=== PATIENT | male | born 1980 | race Caucasian/White ===

== ENCOUNTER 2022-12-20 10:28 | Emergency (ER) | payer OTHER ==
[2022-12-20 10:46] VITALS: RESP 16
[2022-12-20] MEDS ORDERED: SODIUM CHLORIDE 0.9% 1,000 ML IV STA (11:12)
[2022-12-20] MEDS ORDERED: ACETAMINOPHEN TAB 500 MG TAB PO STA (11:12)
--- NOTE | 2022-12-20 11:17 | ED ---
Back Pain HPI - General Chief Complaint: Back Pain/Injury Stated Complaint: lower back pain spiine area Time Seen by Provider: 12/20/22 10:33 Source: patient Limitations: no limitations - History of Present Illness Initial Comments: 42-year-old male with a past surgical history significant for discectomy/laminectomy L4-L5 by Dr. Mcneill on 10/26/22. Patient reports after surgery, has been recovering well with minimal pain however today at rest onset of new lower back pain. No trauma or injury. Pain is sharp in nature. It is a 2 out of 10 in severity constantly however if he is moving pain increases to an 8 out of 10 in severity. He took 800 mg of ibuprofen this morning which he states has provided no relief. Denies chills. Denies fever. No saddle anesthesia. No incontinence. No urinary symptoms. No other complaints. - Related Data Previous Rx's Medication Instructions Recorded methylPREDNISolone Dose Pack 4 mg PO DIRECTED #1 packet 12/20/22 [Medrol Dose Pack] Allergies Allergy/AdvReac Type Severity Reaction Status Date / Time No Known Allergies Allergy Verified 12/20/22 10:30 Review of Systems ROS Statement: Those systems with pertinent positive or pertinent negative responses have been documented in the HPI. ROS Other: All systems not noted in ROS Statement are negative. Past Medical History History of Any Multi-Drug Resistant Organisms: None Reported Past Surgical History: Back Surgery Past Psychological History: No Psychological Hx Reported Smoking Status: Never smoker Past Alcohol Use History: None Reported Past Drug Use History: None Reported General Exam Limitations: no limitations General appearance: alert, in no apparent distress Head exam: Present: atraumatic, normocephalic Neck exam: Present: normal inspection Respiratory exam: Present: normal lung sounds bilaterally Cardiovascular Exam: Present: regular rate, normal rhythm GI/Abdominal exam: Present: soft Extremities exam: Present: other (Strength and Sensation equal and intact of bilateral lower extremities.) Back exam: Present: normal inspection, other (Midline lower lumbar midline spinal tenderness palpation.) Neurological exam: Present: alert, oriented X3 Skin exam: Present: warm, dry Course Vital Signs 12/20/22 12/20/22 10:30 13:37 Temperature 97.7 F 98 F Pulse Rate 64 62 Respiratory 16 16 Rate Blood Pressure 128/82 119/77 O2 Sat by Pulse 100 100 Oximetry Medical Decision Making - Medical Decision Making Was pt. sent in by a medical professional or institution ([facility], [employer], urgent care, hospital, or residential...) When possible be specific @ -No Did you speak to anyone other than the patient for history (EMS, parent, family, police, friend...)? What history was obtained from this source @ -No Did you review nursing and triage notes (agree or disagree)? Why? @ -I reviewed and agree with nursing and triage notes Were old charts reviewed (outside hosp., previous admission, EMS record, old EKG, old radiological studies, urgent care reports/EKG's, residential records)? Report findings @ -Review of old charts shows no prior pertinent records. Differential Diagnosis (chest pain, altered mental status, abdominal pain women, abdominal pain men, vaginal bleeding, weakness, fever, dyspnea, syncope, headache, dizziness, GI bleed, back pain, seizure, CVA, palpatations, mental health, musculoskeletal)? @ -Differential Back Pain: Strain, zoster, cauda equina syndrome, epidural abscess, vertebral osteomyelitis, discitis, fracture, subluxation, disc herniation, DJD, spinal stenosis, dissection, AAA, pancreatitis, peptic ulcer disease, pyelonephritis, kidney stone, this is not meant to be an all-inclusive list. EKG interpreted by me (3pts min.). @ -None X-rays interpreted by me (1pt min.). @ -None done CT interpreted by me (1pt min.). @ -CT shows broad-based posterior disc bulge at L4-L5 with possible extrusion and am inferior migration of this material that may but the transversing right L5 nerve root. Mild compression on the ventral thecal sac but no significance spinal canal stenosis. On the right, mild to moderate foraminal stenosis at L4- L5 and L5-S1. At L4-L5, possibly some right-sided epidural granulation tissue. On the left, moderate neural foraminal stenosis at both L4-L5 and L5-S1. U/S interpreted by me (1pt. min.). @ -None done What testing was considered but not performed or refused? (CT, X-rays, U/S, labs)? Why? @ -None What meds were considered but not given or refused? Why? @ -None Did you discuss the management of the patient with other professionals (professionals i.e. Dr., PA, [employer], lab, RT, psych nurse, licensed social worker, pop singer, teacher, chief lifestyle officer, counter caser)? Give summary @ -Spoke to Rose of OA. Initially, recommended steroids and stay in observation. However, spoke to patient again regarding this. At this time, patient states that he would rather be discharged home on steroids. Spoke to Rose of OA again. At this time recommends steroids in the ED and discharged home with Medrol Dosepak. Was smoking cessation discussed for >3mins.? @ -No Was critical care preformed (if so, how long)? @ -No Were there social determinants of health that impacted care today? How? (Homelessness, low income, unemployed, alcoholism, drug addiction, transportation, low edu. Level, literacy, decrease access to med. care, [facility], rehab)? @ -No Was there de-escalation of care discussed even if they declined (Discuss DNR or withdrawal of care, Hospice)? DNR status @ -No What co-morbidities impacted this encounter? (DM, HTN, Smoking, COPD, CAD, Ca ncer, CVA, ARF, Chemo, Hep., AIDS, mental health diagnosis, sleep apnea, morbid obesity)? @ -None Was patient admitted / discharged? Hospital course, mention meds given and route, prescriptions, significant lab abnormalities, going to OR and other pertinent info. @ -Discharge 42-year-old male presents to the ED with a chief complaint of back pain. CT showed broad-based posterior this bulge at L4-L5 with additional evidence of some stenosis at L4-L5 L5-S1. Spoke to Rose who recommended steroids in the ED an outpatient Medrol Dosepak with follow-up with Dr. Mcneill's office within a week. At this time, patient has no saddle anesthesia, incontinence, or significant weakness and has no thickened difficulties ambulating. Patient dis charged home in stable condition. Discussed return cautions patient who verbalizes agree. Undiagnosed new problem with uncertain prognosis? @ -No Drug Therapy requiring intensive monitoring for toxicity (Heparin, Nitro, Insulin, Cardizem)? @ -No Were any procedures done? @ -No Diagnosis/symptom? @ -Back pain Acute, or Chronic, or Acute on Chronic? @ -Acute Uncomplicated (without systemic symptoms) or Complicated (systemic symptoms)? @ -Uncomplicated Side effects of treatment? @ -No Exacerbation, Progression, or Severe Exacerbation? @ -No Poses a threat to life or bodily function? How? (Chest pain, USA, MS, pneumonia, PE, COPD, DKA, ARF, appy, cholecystitis, CVA, Diverticulitis, Homicidal, Suicidal, threat to staff... and all critical care pts) @ -No - Lab Data Result diagrams: 12/20/22 11:24 12/20/22 11:24 Lab Results 12/20/22 12/20/22 12/20/22 Range/Units 11:24 11:24 11:41 WBC 4.4 (3.8-10.6) k/uL RBC 4.53 (4.30-5.90) m/uL Hgb 14.0 (13.0-17.5) gm/dL Hct 41.1 (39.0-53.0) % MCV 90.7 (80.0-100.0) fL MCH 31.0 (25.0-35.0) pg MCHC 34.2 (31.0-37.0) g/dL RDW 12.3 (11.5-15.5) % Plt Count 276 (150-450) k/uL MPV 7.8 Neutrophils % 48 % Lymphocytes % 31 % Monocytes % 9 % Eosinophils % 8 % Basophils % 1 % Neutrophils # 2.1 (1.3-7.7) k/uL Lymphocytes # 1.4 (1.0-4.8) k/uL Monocytes # 0.4 (0-1.0) k/uL Eosinophils # 0.4 (0-0.7) k/uL Basophils # 0.0 (0-0.2) k/uL Sodium 138 (137-145) mmol/L Potassium 4.4 (3.5-5.1) mmol/L Chloride 103 (98-107) mmol/L Carbon Dioxide 26 (22-30) mmol/L Anion Gap 9 mmol/L BUN 14 (9-20) mg/dL Creatinine 0.73 (0.66-1.25) mg/dL Est GFR (CKD-EPI)AfAm >90 (>60 ml/min/1.73 sqM) Est GFR (CKD-EPI)NonAf >90 (>60 ml/min/1.73 sqM) Glucose 89 (74-99) mg/dL Calcium 9.7 (8.4-10.2) mg/dL Total Bilirubin 0.7 (0.2-1.3) mg/dL AST 22 (17-59) U/L ALT 15 (4-49) U/L Alkaline Phosphatase 68 (38-126) U/L C-Reactive Protein <0.5 (<1.0) mg/dL Total Protein 7.3 (6.3-8.2) g/dL Albumin 4.4 (3.5-5.0) g/dL Urine Color Yellow Urine Appearance Clear (Clear) Urine pH 7.5 (5.0-8.0) Ur Specific [place] 1.021 (1.001-1.035) Urine Protein Negative (Negative) Urine Glucose (UA) Negative (Negative) Urine Ketones Negative (Negative) Urine Blood Negative (Negative) Urine Nitrite Negative (Negative) Urine Bilirubin Negative (Negative) Urine Urobilinogen <2.0 (<2.0) mg/dL Ur Leukocyte Esterase Negative (Negative) Disposition Clinical Impression: Back pain Disposition: HOME SELF-CARE Condition: Good Instructions (If sedation given, give patient instructions): Acute Low Back Pain (ED) Additional Instructions: Please return to the Emergency Department if symptoms worsen or any other concerns. Follow-up with Dr. Mcneill's office within a week. Prescriptions: methylPREDNISolone Dose Pack [Medrol Dose Pack] 4 mg PO DIRECTED #1 packet Is patient prescribed a controlled substance at d/c from ED?: No Referrals: Audie Rowe MD [Primary Care Provider] - 1-2 days Time of Disposition: 15:49
[2022-12-20 11:35] LABS: Basophils % (A) 1 %; Eosinophils # (A) 0.4 k/uL (0-0.7); Eosinophils % (A) 8 %; HCT 41.1 % (39.0-53.0); Lymphocytes # (A) 1.4 k/uL (1.0-4.8); Lymphocytes % (A) 31 %; MCHC 34.2 g/dL (31.0-37.0); MCV 90.7 fL (80.0-100.0); Mean Platelet Volume 7.8; Monocytes # (A) 0.4 k/uL (0-1.0); Monocytes % (A) 9 %; Neutrophils # (A) 2.1 k/uL (1.3-7.7); Neutrophils % (A) 48 %; Platelet Count 276 k/uL (150-450); RBC 4.53 m/uL (4.30-5.90); RDW 12.3 % (11.5-15.5); WBC 4.4 k/uL (3.8-10.6)
[2022-12-20 11:53] LABS: ALT 15 U/L (4-49); AST 22 U/L (17-59); African American GFR (CKD) >90 (>60 ml/min/1.73 sqM); Albumin 4.4 g/dL (3.5-5.0); Alkaline Phosphatase 68 U/L (38-126); Anion Gap 9 mmol/L; Blood Urea Nitrogen 14 mg/dL (9-20); C Reactive Protein <0.5 mg/dL (<1.0); Calcium 9.7 mg/dL (8.4-10.2); Carbon Dioxide 26 mmol/L (22-30); Chloride 103 mmol/L (98-107); Glucose 89 mg/dL (74-99); Non-African American GFR(CKD) >90 (>60 ml/min/1.73 sqM); Potassium 4.4 mmol/L (3.5-5.1); Sodium 138 mmol/L (137-145); Total Bilirubin 0.7 mg/dL (0.2-1.3); Total Protein 7.3 g/dL (6.3-8.2)
[2022-12-20 12:08] LABS: Appearance,Urine Clear (Clear); Bilirubin,Urine Negative (Negative); Blood,Urine Negative (Negative); Color,Urine Yellow; Glucose,Urine (UA) Negative (Negative); Ketones,Urine Negative (Negative); Leukocyte Esterase,Urine Negative (Negative); Nitrite,Urine Negative (Negative); PH, Urine 7.5 (5.0-8.0); Protein,Urine Negative (Negative); Specific Gravity,Urine 1.021 (1.001-1.035); Urobilinogen,Urine <2.0 mg/dL (<2.0)
--- NOTE | 2022-12-20 12:52 | CT ---
EXAMINATION TYPE: CT lumbar spine w con DATE OF EXAM: 12/20/2022 COMPARISON: None HISTORY: 42-year-old male s/p discectomy/laminectomy 10/26/2022. New back pain TECHNIQUE: Contiguous axial scanning of the lumbar spine performed with IV Contrast, patient injected with 100 mL of Isovue 300. Delayed images through the kidneys were obtained. Coronal/sagittal recons tructions performed. CT DLP: 554.8 mGycm Automated exposure control for dose reduction was used. FINDINGS: Extra renal pelvis on both sides. Slight levoconvex curvature entered along the upper lumbar spine. Vertebral body heights are preserved and alignment is maintained. Mild to moderate degenerative disc disease L4-L5 and L5-S1 with bulging and narrowed discs. At L4-L5, there is a broad-based posterior disc bulge, possible extrusion with some inferior migratio n of disc material, sagittal image 20 that may abuts the traversing right L5 nerve root on axial imag e 67. There is mild impression on the ventral thecal sac but no significant spinal canal stenosis. There is a right L4 laminotomy defect. On the left, there is moderate neuroforaminal stenoses at L4-L5 and L5-S1. On the right, there is mild to moderate neuroforaminal stenosis at L5-S1. Mild to moderate at L4-L5 p ossibly secondary to some right-sided epidural granulation tissue, sagittal image 17. IMPRESSION: 1. PREVIOUS RIGHT-SIDED L4 LAMINOTOMY DEFECT. 2. THERE IS BROAD-BASED POSTERIOR DISC BULGE AT L4-L5 WITH POSSIBLE EXTRUSION AND SOME INFERIOR MIGRA TION OF DISC MATERIAL THAT MAY ABUT THE TRAVERSING RIGHT L5 NERVE ROOT. MILD IMPRESSION ON THE VENTRA L THECAL SAC BUT NO SIGNIFICANT SPINAL CANAL STENOSIS. 3. ON THE RIGHT, MILD TO MODERATE FORAMINAL STENOSIS AT BOTH L4-L5 AND L5-S1. AT L4-L5, POSSIBLY SECO NDARY TO SOME RIGHT-SIDED EPIDURAL GRANULATION TISSUE. 4. ON THE LEFT, MODERATE NEURAL FORAMINAL STENOSIS AT BOTH L4-L5 AND L5-S1.
[2022-12-20] MEDS ORDERED: methylPREDNISolone SOD SUCCI 125 MG/2 ML VIAL IM ONE (15:50)
[2022-12-20 16:20] VITALS: BP 120/71; PULSE 70; TEMP 98.3
== END 2022-12-20 16:15 | disposition home or self-care (01) ==
LOC: EC 10:28
DX: M54.50 Low back pain, unspecified (principal)
CPT/HCPCS: 36415; 80053; 85025; 86140; 81003; 72132; 99284; 96360; 96372; J2930; Q9967